=== PATIENT | male | born 1990 | race African-American/Black ===

== ENCOUNTER 2017-08-07 14:23 | Emergency (ER) | payer SELFPAY ==
--- NOTE | 2017-08-07 21:56 | RAD ---
CHEST TWO VIEWS: 08/07/2017 FINDINGS: The heart is normal in size, and the lungs are clear. NO infiltrate or effusion is seen. There is n o vascular congestion or edema. Trachea is midline. The bony structures are unremarkable. IMPRESSION: No acute thoracic findings. POS: HOME
== END 2017-08-07 15:07 | disposition home or self-care (01) ==
LOC: BURERS 14:23
DX: R07.89 Other chest pain (principal)
CPT/HCPCS: 71046; 93005